=== PATIENT | female | born 1960 | race Caucasian/White ===

== ENCOUNTER → 2017-08-08 | Outpatient (CLI) | payer OTHER | LOC: FIMAGING 14:58 | PROVIDERS: ATTEND Obstetrics & Gynecology Gynecology | DX: Z12.31 Encounter for screening mammogram for malignant neoplasm of breast (principal); Z80.3 Family history of malignant neoplasm of breast ==

== ENCOUNTER → 2017-08-17 | Outpatient (CLI) | payer OTHER | LOC: FIMAGING 09:28 | PROVIDERS: ATTEND Obstetrics & Gynecology Gynecology | DX: Z12.31 Encounter for screening mammogram for malignant neoplasm of breast (principal) ==

== ENCOUNTER 2018-05-20 14:05 | Emergency (ER) | payer OTHER ==
[2018-05-20] MEDS ORDERED: LIDOCAINE 4%/MENTHOL 1% PATCH TD ONE (14:32)
[2018-05-20] MEDS ORDERED: IBUPROFEN 600 MG TAB PO ONE (14:32)
--- NOTE | 2018-05-20 14:35 | EDPHY ---
H & P Time Seen by Provider: 05/20/18 14:16 HPI/ROS: CHIEF COMPLAINT: Right mid back pain HISTORY OF PRESENT ILLNESS: 49-year-old female here with acute onset of right mid back pain after she tripped while playing with dogs at home and fell backwards and hit her right side on a coffee table. She reports mild shortness of breath and pain with respiration. She thinks she broke a rib. She takes no blood thinners. She takes no prescribed medication. This happened approximately 1-2 hours prior to arrival. She has noticed no blood in her urine. ROS As detailed in HPI Smoking Status: Never smoked Physical Exam: General: Alert and oriented. Nontoxic appearing. No acute distress HEENT: Pupils PERRLA. No oral lesions. Cardiopulmonary: Regular rate and rhythm. No lower extremity edema Skin: [place] warm and dry. No lesions. Muscle skeletal: Moving all 4 extremities. Equal strength in upper extremities and lower extremities. Ambulatory. Right posterior rib pain but no ecchymosis or crepitus or open skin lesions Constitutional: Initial Vital Signs Temperature (C) 37.0 C 05/20/18 14:08 Heart Rate 75 05/20/18 14:08 Respiratory Rate 20 05/20/18 14:08 Blood Pressure 158/85 H 05/20/18 14:08 O2 Sat (%) 99 05/20/18 14:08 O2 Delivery Mode Room Air Allergies/Adverse Reactions: No Known Allergies Allergy (Unverified 11/11/11 15:49) Home Medications: Medication Instructions Recorded Hydrocodone/Acetaminophen [[place] 1 - 2 tab PO Q6H PRN #12 tab 05/20/18 5/325 (*)] Lidocaine [Lidoderm] 700 mg TP DAILY #30 adh..patch 05/20/18 Medical Decision Making - Diagnostics Imaging Results: Imaging Impressions Chest X-Ray 05/20/18 14:32 Impression: 1. Mildly displaced lateral right 10th rib fracture. 2. Right AC joint separation. 3. Mild cardiomegaly. ED Course/Re-evaluation: 57-year-old female here with right mid back rib pain after falling backwards and hitting a table. She does have mildly displaced 10th rib fracture but no pneumothorax or hemothorax or hypoxia. I did discuss pain control and taking deep breaths to prevent pneumonia or other pulmonary complications. She was given a lidocaine patch here and did feel significant improvement of her pain. She has no abdominal tenderness and urinalysis is negative for blood being high suspicion for intra-abdominal injury extremely low. Differential Diagnosis: Pneumothorax, kidney injury, hemothorax, the hypoxia, thoracic or lumbar spine injury - Data Points Laboratory Results: 05/20/18 14:56 Urine Color YELLOW Urine Appearance HAZY Urine pH 7.0 (5.0-7.5) Ur Specific Reading 1.019 (1.002-1.030) Urine Protein NEGATIVE (NEGATIVE) Urine Ketones TRACE H (NEGATIVE) Urine Blood NEGATIVE (NEGATIVE) Urine Nitrate NEGATIVE (NEGATIVE) Urine Bilirubin NEGATIVE (NEGATIVE) Urine Urobilinogen NEGATIVE EU EU (0.2-1.0) Ur Leukocyte Esterase TRACE H (NEGATIVE) Urine RBC 1-3 /hpf /hpf (0-3) Urine WBC 1-3 /hpf /hpf (0-3) Ur Epithelial Cells TRACE /lpf /lpf (NONE-1+) Urine Mucus TRACE /lpf /lpf (NONE-1+) Urine Glucose NEGATIVE (NEGATIVE) Medications Given: Discontinued Medications Ibuprofen (Motrin) 600 mg PO EDNOW ONE Stop: 05/20/18 14:33 Last Admin: 05/20/18 14:55 Dose: 600 mg Miscellaneous Medication (Icy Hot Lidocaine/Menthol 4%/1% Patch) 1 patch TD EDNOW ONE Stop: 05/20/18 14:33 Last Admin: 05/20/18 14:56 Dose: 1 patch Departure - Departure Disposition: Home, Routine, Self-Care Clinical Impression: Closed rib fracture Condition: Good Instructions: Rib Fracture (ED) Referrals: NONE *PRIMARY CARE P,. [Primary Care Provider] - As per Instructions [facility],. [Clinic] - As per Instructions Prescriptions: Hydrocodone/Acetaminophen [[place] 5/325 (*)] 1 - 2 tab PO Q6H PRN #12 tab PRN Reason: Pain, Moderate Lidocaine [Lidoderm] 700 mg TP DAILY #30 adh..patch
[2018-05-20 15:45] VITALS: BP 138/78
[2018-05-20] MEDS ORDERED: PATCH REMOVAL 1 EA PATCH TD SCH (21:00)
== END 2018-05-20 15:45 | disposition home or self-care (01) ==
DX: S22.31XA Fracture of one rib, right side, initial encounter for closed fracture (principal); W01.190A Fall on same level from slipping, tripping and stumbling with subsequent striking against furniture, initial encounter; Y93.K9 Activity, other involving animal care; Y99.8 Other external cause status; Y92.009 Unspecified place in unspecified non-institutional (private) residence as the place of occurrence of the external cause

== ENCOUNTER → 2018-08-13 | Outpatient (CLI) | payer OTHER | LOC: FIMAGING 15:37 | PROVIDERS: ATTEND Obstetrics & Gynecology Gynecology | DX: Z12.31 Encounter for screening mammogram for malignant neoplasm of breast (principal); Z80.3 Family history of malignant neoplasm of breast ==

== ENCOUNTER → 2018-11-01 | Outpatient (CLI) | payer OTHER | LOC: FIMAGING 07:14 | PROVIDERS: ATTEND Internal Medicine | DX: R09.89 Other specified symptoms and signs involving the circulatory and respiratory systems (principal) ==